=== PATIENT | female | born 1965 | race Caucasian/White ===

== ENCOUNTER → 2020-03-27 | Outpatient (CLI) | payer BC, OTHER ==
[~2020-03-27] MED LIST: BUPROPION HCL150 M1 PO; FLUTICASONE PRO16 GM NASAL; MULTI VITAMIN1 EACH PO; NAPROSYN500 MG PO; ZYRTEC10 M5 PO
== END ==
LOC: LAB 08:04 → EDSTATUS 12:17
PROVIDERS: ATTEND Student in an Organized Health Care Education/Training Program
DX: Z01.812 Encounter for preprocedural laboratory examination (principal); Z20.828 Contact with and (suspected) exposure to other viral communicable diseases

== ENCOUNTER 2020-04-01 10:15 | Day surgery (SDC) | payer BC, OTHER ==
[2020-03-27 12:21] LABS: HEMATOCRIT 39.7 % (37.0-47.0); HEMOGLOBIN 13.5 gm/dL (12.0-15.0); MCH 31.3 pg (26.0-34.0); MCV 92.1 fL (80.0-100.0); RBC 4.3 mil/uL (4.20-5.00); RDW 13.9 % (10.5-14.5); WBC 5.4 thou/uL (4.0-11.0)
[2020-03-27 12:27] LABS: URINE BILIRUBIN NEGATIVE (Negative); URINE BLOOD NEGATIVE (Negative); URINE CLARITY CLEAR; URINE COLOR YELLOW; URINE GLUCOSE-RANDOM* NEGATIVE (Negative); URINE KETONES NEGATIVE (Negative); URINE LEUKOCYTES-REFLEX NEGATIVE (Negative); URINE NITRITE-REFLEX NEGATIVE (Negative); URINE PROTEIN (DIPSTICK) NEGATIVE (Negative); URINE UROBILINOGEN 0.2 E.U./dl (0.2-1.0)
[2020-03-27 12:31] LABS: INR 1.1
[2020-03-27 12:39] LABS: ALBUMIN 3.9 g/dL (3.4-5.0); CALCIUM 9.2 mg/dL (8.5-10.1); CREATININE 0.9 mg/dL (0.6-1.0); POTASSIUM 4.5 mmol/L (3.5-5.1)
[~2020-04-01] VITALS: Ht 182.9 cm; Wt 126.1 kg
--- NOTE | ~2020-04-01 | O ---
[facility] [place] [address] OPERATIVE REPORT Name: NORBERT HINKLE Room #: 437-P [facility].#: [id number] Admission: 04/01/20 Attend Phys: Dany Rendon MD Discharge: Date of : 69 Report #: [id number] THIS REPORT FOR: cc: HEATHER - Jess family physician/PCP HEATHER - Jess family physician/PCP Dany Rendon MD ~ CC: HEATHER physician/PCP Dany Rendon DATE OF SERVICE: 04/01/2020 PREOPERATIVE DIAGNOSIS: Left knee medial compartment osteoarthritis. POSTOPERATIVE DIAGNOSIS: Left knee medial compartment osteoarthritis. PROCEDURE: Left medial compartment knee arthroplasty using Navio robotic engineer third assistant. SURGEON: Dany Rendon MD. AQUACULTURE FARM MANAGER: Aleisha Gaxiola PA-C. INDICATIONS FOR AQUACULTURE FARM MANAGER: Throughout the case, extensive retraction and manipulation of the knee was required. This was afforded to me by my engineer third assistant. ANESTHESIA: LMA with an adductor canal block. IMPLANTS: [employer] size 6 Journey II Oxinium medial femoral component, a size 3 tibia and a size 9 polyethylene. TOURNIQUET TIME: 52 minutes. ESTIMATED BLOOD LOSS: 25 mL. COMPLICATIONS: None. SPECIMENS: None. CONDITION UPON LEAVING THE OPERATING ROOM: Stable. INDICATIONS FOR PROCEDURE: The patient is a 54-year-old female with severe left knee medial compartment osteoarthritis. She had failed conservative measures for this and after discussion with her, she elected for medial compartment knee arthroplasty. Informed consent was obtained from the patient. Left knee was appropriately [facility] [address] [place] [address] OPERATIVE REPORT Name: NORBERT HINKLE Room #: 437-P [facility]..#: [id number] Admission: 04/01/20 Attend Phys: Dany Rendon MD Discharge: Date of : 69 Report #: [id number] marked in the preoperative holding area. IV Ancef was given for preoperative antibiotics. Adductor canal block was placed by Anesthesia. She was brought to the operating room and placed in supine position on operating room table. LMA anesthesia was induced without complication. Tourniquet was placed on the left thigh. Left lower extremity was prepped and draped in normal sterile fashion. Timeout was performed properly identifying the patient and procedure as well as the instrumentation and implants. All in the operating room were in agreement. Left lower extremity was exsanguinated, tourniquet was inflated. Tourniquet time was 52 minutes. Standard midline approach to knee was made with a 10 blade through the skin. Dissection was taken down sharply to the fascia and deep flaps were developed medially and laterally. Fresh 10 blade was used to make a medial parapatellar arthrotomy and the knee was inspected. There was severe medial compartment osteoarthritis. Patellofemoral compartment demonstrated grade 2 chondromalacia, lateral compartment was well maintained and ACL was intact. It was decided to proceed with medial compartment arthroplasty. Reference pins were placed in the femur and the tibia. The knee was then digitally mapped using the Navio robotic system. Intraoperative plan was made. We sized the size 6 femur with a size 3 tibia and a 9 spacer. After acceptance of the intraoperative plan, the femoral and tibial resections were made with a Navio bur. A size 3 tibial trial was placed and drill holes were made. A size 6 femoral trial was placed. This was then trialed with a size 8 and then a size 9 polyethylene and size 9 polyethylene demonstrated 1-2 millimeter of laxity medially throughout range of motion and was felt to have the best fit. After this, trial components were removed. Bony ends were thoroughly irrigated with normal saline. Final size 3 tibia, a size 6 Journey II Oxinium medial compartment femoral component were cemented in place using standard cementation techniques. While the cement cured, a periarticular injection consisting of morphine, ropivacaine, epinephrine and Toradol was placed around the knee joint capsule. After the cement cured, tourniquet was deflated. Hemostasis was obtained with Bovie cautery. A final size 9 polyethylene was placed. A gram of vancomycin was placed deep in the joint. The fascia was closed with 0 Vicryl, skin was closed with 2-0 Vicryl. Skin staple and a RHEA dressing was applied. The patient tolerated this procedure well and went to recovery room under the care of anesthesia postoperatively. By: [id number] Dany Rendon MD /brenda
[2020-04-01 11:26] VITALS: BP 129/80
--- NOTE | 2020-04-01 18:31 | NUR ---
PATIENT ADMITTED FROM OR WITH LEFT KNEE REPLACEMENT, RHEA DRESSING, KNEE HIGH JOSE DE JESUS HOSE, SCD'S, POLAR PACK. PATIENT ALERT AND ORIENTED X 4. PATIENT C/O PAIN WITH LEFT KNEE, HYDROCODONE 1 TABLET GIVEN. IV FLUIDS STARTED TO LEFT WRIST. NO C/O NAUSEA, PATIENT HAD BOX LUNCH REFUSED DINNER TRAY. DAUGHTER AT BEDSIDE. ADMISSION COMPLETED. REPORT GIVEN TO ERIC/RN.
[2020-04-01 18:44] VITALS: BP 137/84
[2020-04-01 21:00] VITALS: BP 113/63
--- NOTE | 2020-04-01 23:59 | NUR ---
ASSESSMENT COMPLETED.PT IS ALERT AND ORIENTED. L KNEE WITH RHEA DRSG WELL POLAR LUI.PT IS AFEBRILE.IV FLUIDS INFUSING-IV ABT GIVEN PER PROTOCOL. LEFT TOES WITH WARMTH AND GOOD CAP REFILL. KNEE HIGH TEDS IN PLACE AND PT IS ABLE TO WIGGLE TOES.SHE MAKES NEEDS KNOWN.CALL LIGHT WITHIN REACH.
[2020-04-02 05:15] VITALS: BP 123/69
[2020-04-02 05:34] LABS: HEMATOCRIT 35.1 % (37.0-47.0); HEMOGLOBIN 11.6 gm/dL (12.0-15.0); MCH 30.9 pg (26.0-34.0); MCV 93.5 fL (80.0-100.0); RBC 3.75 mil/uL (4.20-5.00); RDW 14.3 % (10.5-14.5); WBC 11.9 thou/uL (4.0-11.0)
[2020-04-02 07:35] VITALS: BP 139/67
--- NOTE | 2020-04-02 08:28 | NUR ---
ASSESSMENT: CM REVIEWED CHART AND SPOKE WITH PATIENT AT THE BEDSIDE. PT IS ALERT AND ORIENTED X4. PT IS HERE DUE TO LEFT KNEE ARTHROPLASTY. PT REPORTS SHE LIVES IN A HOUSE ALONE. PT REPORTS THAT SHE HAS ONE STEP TO ENTER AND ALL HER NEEDS ARE ON THE MAIN LEVEL. PT REPORTS AN UPSTAIRS AND BASEMENT BUT STATES SHE HAS NO NEED TO GO ON THOSE LEVELS. PT REPORTS SHE NORMALLY AMBULATES INDEPENDENTLY. PT DOES NOT HAVE ANY DME AT HOME. PT REPORTS HAVING OUTPATIENT THERAPY SET UP FOR TOMORROW AT [facility] AT [facility]. PT/OT TO SEE PATIENT AND CM WILL CONTINUE TO FOLLOW. IF PATIENT IS NEEDING DME SHE HAS NO PREFERENCE OF DME COMPANY.
[2020-04-02 11:10] VITALS: BP 123/69
[2020-04-02 12:59] VITALS: BP 123/69
--- NOTE | 2020-04-02 14:46 | NUR ---
DC ORDERS RECIEVED. IV REMOVED FROM L WRIST. DC INSTRUCTIONS, F/U VISIT REVIEWED WITH PT. PATIENT HAS PICKED UP SCRIPTS PRIOR TO SURGERY. PT ESCORTED TO MAIN ENTRANCE BY W/C. DRSG WAS C/D/I, POLAR PACK SECURED WITH RUTH WRAP.
== END 2020-04-02 13:34 | disposition home or self-care (01) ==
LOC: OR 10:15 → TBA 10:15 → OR 10:22 → 4S 16:30 → OR 04-02 13:34
PROVIDERS: ATTEND Orthopaedic Surgery
DX: M17.12 Unilateral primary osteoarthritis, left knee (principal); M25.562 Pain in left knee; F32.9 Major depressive disorder, single episode, unspecified; Z98.890 Other specified postprocedural states; Z79.899 Other long term (current) drug therapy; Z87.891 Personal history of nicotine dependence; Z98.51 Tubal ligation status; Z88.8 Allergy status to other drugs, medicaments and biological substances
CPT/HCPCS: 10102; 50010; 50101; 53370; 57103; 57110; 62110; 62900; 64039; 70005

== ENCOUNTER → 2020-06-05 | Outpatient (CLI) | payer BC, OTHER | LOC: ULTRA 15:57 | PROVIDERS: ATTEND Orthopaedic Surgery | DX: M79.89 Other specified soft tissue disorders (principal) ==